=== PATIENT | female | born 2000 | race Caucasian/White ===

== ENCOUNTER 2021-11-13 07:43 | Day surgery (SDC) | payer BC ==
[2021-11-08 17:02] LABS: Hemoglobin 13.4 g/dL (12.0-15.5); Mean Corpuscular HGB CONC 33.8 g/dL (32.0-36.0); Mean Corpuscular Hemoglobin 30.2 pg (27.0-33.0); Mean Corpuscular Volume 89.4 fl (81.6-98.3); Mean Platelet Volume 11.7 fl (7.4-10.4); Platelet Count 202 10x3/uL (150-450); RBC Distribution Width 12.3 % (11.5-14.5); Red Blood Cell (RBC) Count 4.43 10x6/uL (3.90-5.03); White Blood Cell (WBC) Count 7.7 10x3/uL (3.5-10.5)
[2021-11-08 17:15] LABS: BHCG - Serum Negative (NEGATIVE); Pregs Control Background? CLEAR/WHITE (CLR/WHITE); Pregs Control Bar Appear? YES (CONTROL BAR)
[2021-11-11 10:34] VITALS: BMI 19.2
[2021-11-13] MEDS ORDERED: Gabapentin 300 MG CAP ONE (08:08)
[2021-11-13] MEDS ORDERED: Lidocaine 1% MPF 2 ML VIAL ONE (08:09)
[2021-11-13] MEDS ORDERED: Famotidine/PF 20 mg/2ml Vial ONE (08:09)
[2021-11-13] MEDS ORDERED: CeleCOXIB 100 MG CAP ONE (08:09)
[2021-11-13] MEDS ORDERED: EPINEPHrine 1 MG/ML AMP ONE (09:37)
[2021-11-13] MEDS ORDERED: Bupivacaine PF 0.5% 30 ML VIAL ONE (09:37)
[2021-11-13] MEDS ORDERED: Glycopyrrolate 0.2 MG/ML 5 ML SYRINGE ONE (09:38)
[2021-11-13] MEDS ORDERED: Ondansetron PF 4 MG/2 ML Vial ONE ×3 (09:38→14:44)
[2021-11-13] MEDS ORDERED: Rocuronium Bromide 10 MG/ML (10ML VIAL) ONE (09:38)
[2021-11-13] MEDS ORDERED: Midazolam HCl 2 mg/2 ml Vial ONE (09:38)
[2021-11-13] MEDS ORDERED: Fentanyl 100 MCG/2 ML VIAL ONE ×2 (09:38→11:21)
[2021-11-13] MEDS ORDERED: Dexamethasone 4 mg/ml Vial ONE (09:38)
[2021-11-13] MEDS ORDERED: Lidocaine 1% PF 5 ML VIAL ONE (09:38)
[2021-11-13] MEDS ORDERED: PROPOFOL 20 ML ONE (09:38)
[2021-11-13] MEDS ORDERED: CEFAZOLIN 2 GM VIAL ONE (09:45)
[2021-11-13] MEDS ORDERED: Ketorolac Tromethamine 30 MG/ML VIAL ONE (10:07)
[2021-11-13] MEDS ORDERED: Meperidine HCl/PF 25 MG/ML VIAL ONE (10:45)
== END 2021-11-13 15:45 | disposition home or self-care (01) ==
LOC: CSHSDC 07:43
PROVIDERS: ATTEND Student in an Organized Health Care Education/Training Program
PROC: 0UB54ZZ Excision of Right Fallopian Tube, Percutaneous Endoscopic Approach (ICD-10-PCS; principal; 2021-11-13)
PROC: 0D5W4ZZ Destruction of Peritoneum, Percutaneous Endoscopic Approach (ICD-10-PCS; principal; 2021-11-13)
PROC: 0UDB8ZX Extraction of Endometrium, Via Natural or Artificial Opening Endoscopic, Diagnostic (ICD-10-PCS; principal; 2021-11-13)
DX: N80.3 Endometriosis of pelvic peritoneum (principal); N83.8 Other noninflammatory disorders of ovary, fallopian tube and broad ligament; N94.6 Dysmenorrhea, unspecified; N92.0 Excessive and frequent menstruation with regular cycle; Z79.899 Other long term (current) drug therapy; Z88.8 Allergy status to other drugs, medicaments and biological substances; Z20.822 Contact with and (suspected) exposure to COVID-19
CPT/HCPCS: 84703; 85027; 86850; 86900; 86901; 87811; 88304; 88305; 88341; 88342; J0171; J0690; J1100; J1885; J2175; J2250; J2405; J2704; J3010; S0020; S0028